=== PATIENT | female | born 1970 | race Hispanic/Latino ===

== ENCOUNTER 2020-04-25 09:10 | Emergency (ER) | payer SELFPAY ==
[2020-04-25] MEDS ORDERED: SODIUM CHLORIDE 0.9% 1000ML 2,000 ML IV ONE (09:46)
[2020-04-25] MEDS ORDERED: KETOROLAC TROMETHAMINE 30MG/ML ONE (09:47)
[2020-04-25] MEDS ORDERED: CEFTRIAXONE SODIUM 2 GM VIAL ONE (09:47)
[2020-04-25 09:59] LABS: BASOPHILS % (AUTO) 0.3 % (0.0-5.0); EOSINOPHILS % (AUTO) 0.1 % (0.0-8.0); LYMPHOCYTES % (AUTO) 8.6 % (21.0-51.0); MEAN CORPUSCULAR HEMOGLOBIN 28.7 pg (27.0-33.0); MEAN CORPUSCULAR HGB CONC 33.7 g/dL (32.0-36.0); MEAN CORPUSCULAR VOLUME 85.2 fL (79-99); MONOCYTES % (AUTO) 9.1 % (3.0-13.0); NEUTROPHILS % (AUTO) 81.3 % (40.0-77.0); PLATELET COUNT (AUTO) 103 K/uL (130-400); RED BLOOD CELL COUNT(AUTO) 5.75 MIL/uL (4.00-5.50); RED CELL DISTRIBUTION WIDTH 13.3 % (11.0-15.5); WHITE BLOOD COUNT (AUTO) 10.9 K/uL (4.8-10.8)
[2020-04-25 10:08] LABS: INR 0.98 (0.85-1.15); PARTIAL THROMBOPLASTIN TIME 25.7 SEC (26.3-35.5); PROTHROMBIN TIME 10.6 SEC (9.6-11.6)
[2020-04-25 10:23] LABS: CHLORIDE 101 mmol/L (101-111); POTASSIUM 4.2 mmol/L (3.5-5.1); SODIUM SERUM 135 mmol/L (136-145)
[2020-04-25 10:43] LABS: ALANINE AMINOTRANSFERASE 42 U/L (12-78); ALBUMIN 3.8 g/dL (3.5-5.0); ASPARTATE AMINOTRANSFERASE 39 U/L (10-37); BILIRUBIN,TOTAL 1.5 mg/dL (0.2-1.0); CARBON DIOXIDE 24 mmol/L (21-32); CREATINE KINASE, TOTAL 87 U/L (21-232); GLUCOSE,RANDOM 105 mg/dL (70-105); MYOGLOBIN 32 ng/mL (10-92); TROPONIN I < 0.04 ng/mL (0.00-0.06); UREA NITROGEN, BLOOD 9 mg/dL (7-18)
[2020-04-25 10:55] LABS: CREATININE 0.8 mg/dL (0.5-1.5); GLOMERULAR FILTR. RATE CALC 80 mL/min (>60)
[2020-04-25] MEDS ORDERED: SODIUM CHLORIDE 0.9% 1000ML 1,000 ML IV ONE (11:11)
[2020-04-25 11:18] LABS: APPEARANCE,URINE Clear (CLEAR); BILIRUBIN,URINE Negative (NEGATIVE); COLOR,URINE Yellow (YELLOW); GLUCOSE, URINE (UA) Negative (NEGATIVE); KETONES,URINE 15 mg/dL (NEGATIVE); LEUKOCYTE ESTERASE ,URINE Small (NEGATIVE); NITRATE,URINE Negative (NEGATIVE); OCCULT BLOOD,URINE Trace (NEGATIVE); PROTEIN,URINE Trace mg/dL (NEGATIVE)
[2020-04-25 11:54] LABS: BACTERIA,URINE Few /HPF (None Seen); RBC,URINE 0-1 /HPF (0-1)
== END 2020-04-25 13:45 | disposition home or self-care (01) ==
LOC: EDH 09:10
DX: N12 Tubulo-interstitial nephritis, not specified as acute or chronic (principal); Z98.890 Other specified postprocedural states
CPT/HCPCS: 36415; 71045; 74176; 80053; 81001; 82550; 83605; 83874; 84145; 84484; 85025; 85610; 85730; 86900; 86901; 87040 ×2; 87077 ×2; 87088; 87186 ×2; 93005; 96361; 96374; 96375; 99285; J0696; J1885; J7030 ×2

== ENCOUNTER 2020-08-24 20:20 | Inpatient (IN) | payer SELFPAY ==
[~2020-08-24] VITALS: Ht 175.3 cm; Wt 103.4 kg
[2020-08-24] MEDS ORDERED: CLINDAMYCIN 900 MG/D5% WATER 50 ML IV ONE (21:03)
[2020-08-24] MEDS ORDERED: KETOROLAC TROMETHAMINE 30MG/ML ONE (21:04)
[2020-08-24 21:40] LABS: BASOPHILS % (AUTO) 0.3 % (0.0-5.0); EOSINOPHILS % (AUTO) 0.1 % (0.0-8.0); HEMATOCRIT 46.8 % (36-48); LYMPHOCYTES % (AUTO) 14.9 % (21.0-51.0); MEAN CORPUSCULAR HEMOGLOBIN 28.4 pg (27.0-33.0); MEAN CORPUSCULAR HGB CONC 32.9 g/dL (32.0-36.0); MEAN CORPUSCULAR VOLUME 86.3 fL (79-99); MONOCYTES % (AUTO) 8.8 % (3.0-13.0); NEUTROPHILS % (AUTO) 75.2 % (40.0-77.0); PLATELET COUNT (AUTO) 130 K/uL (130-400); RED BLOOD CELL COUNT(AUTO) 5.42 MIL/uL (4.00-5.50); RED CELL DISTRIBUTION WIDTH 12.9 % (11.0-15.5); WHITE BLOOD COUNT (AUTO) 18.3 K/uL (4.8-10.8)
[2020-08-24 21:43] LABS: APPEARANCE,URINE Clear (CLEAR); BILIRUBIN,URINE Negative (NEGATIVE); COLOR,URINE Yellow (YELLOW); GLUCOSE, URINE (UA) Negative (NEGATIVE); KETONES,URINE 15 mg/dL (NEGATIVE); LEUKOCYTE ESTERASE ,URINE Trace (NEGATIVE); NITRATE,URINE Negative (NEGATIVE); OCCULT BLOOD,URINE Trace (NEGATIVE); PROTEIN,URINE Trace mg/dL (NEGATIVE)
[2020-08-24 21:51] LABS: CREATININE 0.7 mg/dL (0.5-1.5); POTASSIUM 3.5 mmol/L (3.5-5.1)
[2020-08-24 21:55] LABS: ALBUMIN 3.6 g/dL (3.5-5.0); BILIRUBIN,TOTAL 1.2 mg/dL (0.2-1.0); TOTAL PROTEIN, SERUM 7.9 g/dL (6.0-8.3)
[2020-08-24 22:06] LABS: RBC,URINE None Seen /HPF (0-1)
[2020-08-24 22:07] LABS: BACTERIA,URINE None Seen /HPF (None Seen); SQUAMOUS EPITHELIAL CELL,UR Moderate /HPF (0-2)
[2020-08-24] MEDS ORDERED: LACTULOSE 20 GM/30 ML UDCUP PO PRN (23:30)
[2020-08-24] MEDS ORDERED: ONDANSETRON HCL 4 MG/2 ML VIAL IV PRN (23:30)
[2020-08-24] MEDS ORDERED: ACETAMINOPHEN 325 MG TAB PO PRN ×2 (23:30)
[2020-08-25 01:52] LABS: HEMOGLOBIN A1C 5.5 % (4.0-6.0)
[2020-08-25 03:00] VITALS: BP 131/85
[2020-08-25] MEDS ORDERED: CLINDAMYCIN 600 MG/D5% WATER 50 ML IV ONE (03:12)
[2020-08-25] MEDS: CLINDAMYCIN 600 MG/D5% WATER 50 ML IV SCH ×3 (05:12→21:54)
[2020-08-25 07:26] VITALS: BP 144/84
[2020-08-25] MEDS ORDERED: FAMOTIDINE 20MG TAB 20 MG TAB PO SCH (09:00)
[2020-08-25] MEDS: FAMOTIDINE 20MG TAB 20 MG TAB PO SCH ×2 (09:31→20:16)
[2020-08-25] MEDS: ENOXAPARIN SODIUM 40 MG/0.4 ML SYRINGE SQ SCH (09:32)
[2020-08-25] MEDS: ACETAMINOPHEN-CODEINE 300/30MG TAB PO PRN ×2 (10:37→20:17)
[2020-08-25 11:06] VITALS: BP 134/76
[2020-08-25 16:59] VITALS: BP 136/87
[2020-08-25 20:00] VITALS: BP 140/83
[2020-08-25 23:03] VITALS: BP 132/76
[2020-08-26] VITALS (7 sets, daily range): BP systolic 115–154; BP diastolic 69–88
[2020-08-26] MEDS: CLINDAMYCIN 600 MG/D5% WATER 50 ML IV SCH ×3 (06:01→21:26)
[2020-08-26] MEDS: FAMOTIDINE 20MG TAB 20 MG TAB PO SCH ×2 (08:27→20:53)
[2020-08-26] MEDS: ENOXAPARIN SODIUM 40 MG/0.4 ML SYRINGE SQ SCH (08:29)
[2020-08-26] MEDS: ACETAMINOPHEN-CODEINE 300/30MG TAB PO PRN ×2 (08:31→18:42)
[2020-08-26] MEDS: SODIUM CHLORIDE 0.9% 1000ML 1,000 ML IV SCH ×2 (11:06→21:27)
[2020-08-26 11:11] LABS: BASOPHILS % (AUTO) 0.3 % (0.0-5.0); EOSINOPHILS % (AUTO) 0.7 % (0.0-8.0); HEMATOCRIT 44.8 % (36-48); LYMPHOCYTES % (AUTO) 14.4 % (21.0-51.0); MEAN CORPUSCULAR HEMOGLOBIN 28.3 pg (27.0-33.0); MEAN CORPUSCULAR HGB CONC 32.6 g/dL (32.0-36.0); MONOCYTES % (AUTO) 10.5 % (3.0-13.0); NEUTROPHILS % (AUTO) 73.7 % (40.0-77.0); PLATELET COUNT (AUTO) 143 K/uL (130-400); RED BLOOD CELL COUNT(AUTO) 5.15 MIL/uL (4.00-5.50); RED CELL DISTRIBUTION WIDTH 12.8 % (11.0-15.5); WHITE BLOOD COUNT (AUTO) 9.7 K/uL (4.8-10.8)
[2020-08-26 11:17] LABS: BILIRUBIN,TOTAL 0.5 mg/dL (0.2-1.0); CREATININE 0.7 mg/dL (0.5-1.5); POTASSIUM 3.7 mmol/L (3.5-5.1); TOTAL PROTEIN, SERUM 7.6 g/dL (6.0-8.3)
[2020-08-27 03:25] VITALS: BP 155/91
[2020-08-27] MEDS: CLINDAMYCIN 600 MG/D5% WATER 50 ML IV SCH ×3 (05:57→22:13)
[2020-08-27 07:35] VITALS: BP 160/84
[2020-08-27 08:27] LABS: BASOPHILS % (AUTO) 0.4 % (0.0-5.0); EOSINOPHILS % (AUTO) 1.2 % (0.0-8.0); HEMATOCRIT 42.8 % (36-48); LYMPHOCYTES % (AUTO) 19.3 % (21.0-51.0); MEAN CORPUSCULAR HEMOGLOBIN 28.5 pg (27.0-33.0); MEAN CORPUSCULAR HGB CONC 32.9 g/dL (32.0-36.0); MEAN CORPUSCULAR VOLUME 86.6 fL (79-99); MONOCYTES % (AUTO) 9.6 % (3.0-13.0); NEUTROPHILS % (AUTO) 69.2 % (40.0-77.0); PLATELET COUNT (AUTO) 154 K/uL (130-400); RED BLOOD CELL COUNT(AUTO) 4.94 MIL/uL (4.00-5.50); RED CELL DISTRIBUTION WIDTH 12.9 % (11.0-15.5); WHITE BLOOD COUNT (AUTO) 7.8 K/uL (4.8-10.8)
[2020-08-27 08:52] LABS: ALBUMIN 2.9 g/dL (3.5-5.0); BILIRUBIN,TOTAL 0.4 mg/dL (0.2-1.0); CREATININE 0.7 mg/dL (0.5-1.5); POTASSIUM 3.9 mmol/L (3.5-5.1); TOTAL PROTEIN, SERUM 7.3 g/dL (6.0-8.3)
[2020-08-27] MEDS: SODIUM CHLORIDE 0.9% 1000ML 1,000 ML IV SCH ×2 (08:54→19:13)
[2020-08-27] MEDS: FAMOTIDINE 20MG TAB 20 MG TAB PO SCH ×2 (08:55→20:23)
[2020-08-27] MEDS: ENOXAPARIN SODIUM 40 MG/0.4 ML SYRINGE SQ SCH (08:55)
[2020-08-27] MEDS: ACETAMINOPHEN-CODEINE 300/30MG TAB PO PRN ×3 (08:56→20:25)
[2020-08-27 11:59] VITALS: BP 154/81
[2020-08-27 15:06] VITALS: BP 152/82
[2020-08-27 20:27] VITALS: BP 147/79
[2020-08-27 23:50] VITALS: BP 141/83
[2020-08-28] VITALS (7 sets, daily range): BP systolic 124–161; BP diastolic 72–92
[2020-08-28] MEDS: ACETAMINOPHEN-CODEINE 300/30MG TAB PO PRN ×3 (04:09→18:11)
[2020-08-28] MEDS: SODIUM CHLORIDE 0.9% 1000ML 1,000 ML IV SCH ×3 (05:00→22:05)
[2020-08-28] MEDS: CLINDAMYCIN 600 MG/D5% WATER 50 ML IV SCH ×3 (06:06→21:56)
[2020-08-28] MEDS: FAMOTIDINE 20MG TAB 20 MG TAB PO SCH ×2 (09:15→20:42)
[2020-08-28] MEDS: ENOXAPARIN SODIUM 40 MG/0.4 ML SYRINGE SQ SCH (09:16)
[2020-08-29 03:09] VITALS: BP 132/68
[2020-08-29] MEDS: SODIUM CHLORIDE 0.9% 1000ML 1,000 ML IV SCH ×2 (04:09→14:04)
[2020-08-29] MEDS: ACETAMINOPHEN-CODEINE 300/30MG TAB PO PRN ×3 (04:14→20:25)
[2020-08-29] MEDS: CLINDAMYCIN 600 MG/D5% WATER 50 ML IV SCH ×3 (06:19→22:15)
[2020-08-29 07:36] VITALS: BP 138/81
[2020-08-29] MEDS: FAMOTIDINE 20MG TAB 20 MG TAB PO SCH ×2 (09:38→20:24)
[2020-08-29] MEDS: ENOXAPARIN SODIUM 40 MG/0.4 ML SYRINGE SQ SCH (09:39)
[2020-08-29 12:10] VITALS: BP 147/92
[2020-08-29 12:23] LABS: HEMATOCRIT 45.1 % (36-48); MEAN CORPUSCULAR HEMOGLOBIN 28.2 pg (27.0-33.0); MEAN CORPUSCULAR HGB CONC 32.6 g/dL (32.0-36.0); MEAN CORPUSCULAR VOLUME 86.4 fL (79-99); RED BLOOD CELL COUNT(AUTO) 5.22 MIL/uL (4.00-5.50); RED CELL DISTRIBUTION WIDTH 12.7 % (11.0-15.5); WHITE BLOOD COUNT (AUTO) 7.4 K/uL (4.8-10.8)
[2020-08-29 12:32] LABS: CREATININE 0.7 mg/dL (0.5-1.5); POTASSIUM 3.8 mmol/L (3.5-5.1)
[2020-08-29 16:38] VITALS: BP 136/80
[2020-08-29 19:21] VITALS: BP 160/91
[2020-08-29 23:40] VITALS: BP 142/79
[2020-08-30] VITALS (8 sets, daily range): BP systolic 134–166; BP diastolic 73–93
[2020-08-30] MEDS: SODIUM CHLORIDE 0.9% 1000ML 1,000 ML IV SCH (00:55)
[2020-08-30 05:22] LABS: MEAN CORPUSCULAR HEMOGLOBIN 28.8 pg (27.0-33.0); MEAN CORPUSCULAR HGB CONC 33.3 g/dL (32.0-36.0); MEAN CORPUSCULAR VOLUME 86.4 fL (79-99); RED BLOOD CELL COUNT(AUTO) 5.21 MIL/uL (4.00-5.50); RED CELL DISTRIBUTION WIDTH 12.7 % (11.0-15.5); WHITE BLOOD COUNT (AUTO) 6.5 K/uL (4.8-10.8)
[2020-08-30 05:29] LABS: CREATININE 0.7 mg/dL (0.5-1.5); POTASSIUM 3.7 mmol/L (3.5-5.1)
[2020-08-30] MEDS: CLINDAMYCIN 600 MG/D5% WATER 50 ML IV SCH ×3 (05:57→22:22)
[2020-08-30] MEDS: FAMOTIDINE 20MG TAB 20 MG TAB PO SCH ×2 (08:37→22:22)
[2020-08-30] MEDS: ACETAMINOPHEN-CODEINE 300/30MG TAB PO PRN (08:38)
[2020-08-30] MEDS: ENOXAPARIN SODIUM 40 MG/0.4 ML SYRINGE SQ SCH (08:39)
[2020-08-31 02:53] VITALS: BP 131/75
[2020-08-31 06:16] LABS: BASOPHILS % (AUTO) 0.5 % (0.0-5.0); EOSINOPHILS % (AUTO) 2.2 % (0.0-8.0); HEMATOCRIT 43.7 % (36-48); LYMPHOCYTES % (AUTO) 29.9 % (21.0-51.0); MEAN CORPUSCULAR HEMOGLOBIN 28.2 pg (27.0-33.0); MEAN CORPUSCULAR HGB CONC 32.7 g/dL (32.0-36.0); MEAN CORPUSCULAR VOLUME 86.2 fL (79-99); MONOCYTES % (AUTO) 10.1 % (3.0-13.0); NEUTROPHILS % (AUTO) 56.7 % (40.0-77.0); PLATELET COUNT (AUTO) 211 K/uL (130-400); RED BLOOD CELL COUNT(AUTO) 5.07 MIL/uL (4.00-5.50); RED CELL DISTRIBUTION WIDTH 12.6 % (11.0-15.5); WHITE BLOOD COUNT (AUTO) 7.8 K/uL (4.8-10.8)
[2020-08-31] MEDS: CLINDAMYCIN 600 MG/D5% WATER 50 ML IV SCH (06:17)
[2020-08-31 06:36] LABS: ALBUMIN 3.1 g/dL (3.5-5.0); BILIRUBIN,TOTAL 0.3 mg/dL (0.2-1.0); CREATININE 0.8 mg/dL (0.5-1.5); POTASSIUM 4.3 mmol/L (3.5-5.1); TOTAL PROTEIN, SERUM 7.5 g/dL (6.0-8.3)
[2020-08-31 07:28] VITALS: BP 157/86
[2020-08-31] MEDS: FAMOTIDINE 20MG TAB 20 MG TAB PO SCH ×2 (08:46→21:00)
[2020-08-31] MEDS: ENOXAPARIN SODIUM 40 MG/0.4 ML SYRINGE SQ SCH (08:47)
[2020-08-31] MEDS ORDERED: LISINOPRIL 5 MG TABLET PO SCH (10:45)
[2020-08-31 11:29] VITALS: BP 135/66
[2020-08-31] MEDS: AMOXICILLIN/POTASSIUM CLAV 500-125 TABLET PO SCH ×2 (12:13→21:00)
[2020-08-31 16:26] VITALS: BP 121/78
[2020-08-31 19:40] VITALS: BP 149/80
[2020-08-31 23:22] VITALS: BP 141/76
[2020-09-01] VITALS (18 sets, daily range): BP systolic 116–151; BP diastolic 62–89
[2020-09-01 06:40] LABS: BASOPHILS % (AUTO) 0.4 % (0.0-5.0); EOSINOPHILS % (AUTO) 2.2 % (0.0-8.0); HEMATOCRIT 46.8 % (36-48); LYMPHOCYTES % (AUTO) 36.4 % (21.0-51.0); MEAN CORPUSCULAR HEMOGLOBIN 27.8 pg (27.0-33.0); MEAN CORPUSCULAR HGB CONC 32.5 g/dL (32.0-36.0); MEAN CORPUSCULAR VOLUME 85.6 fL (79-99); MONOCYTES % (AUTO) 8.3 % (3.0-13.0); PLATELET COUNT (AUTO) 225 K/uL (130-400); RED BLOOD CELL COUNT(AUTO) 5.47 MIL/uL (4.00-5.50); RED CELL DISTRIBUTION WIDTH 12.8 % (11.0-15.5)
[2020-09-01 06:55] LABS: ALBUMIN 3.2 g/dL (3.5-5.0); BILIRUBIN,TOTAL 0.3 mg/dL (0.2-1.0); CREATININE 0.8 mg/dL (0.5-1.5); POTASSIUM 4.3 mmol/L (3.5-5.1); TOTAL PROTEIN, SERUM 7.8 g/dL (6.0-8.3)
[2020-09-01] MEDS: FAMOTIDINE 20MG TAB 20 MG TAB PO SCH ×2 (08:28→21:20)
[2020-09-01] MEDS: LISINOPRIL 5 MG TABLET PO SCH (08:28)
[2020-09-01] MEDS: ENOXAPARIN SODIUM 40 MG/0.4 ML SYRINGE SQ SCH (08:30)
[2020-09-01] MEDS: AMOXICILLIN/POTASSIUM CLAV 500-125 TABLET PO SCH ×2 (09:41→21:20)
[2020-09-01] MEDS ORDERED: LACTATED RINGERS 1000ML 1,000 ML IV ONE (10:01)
[2020-09-01] MEDS ORDERED: LIDOCAINE PF 2% 5ML ABBOJECT ONE (10:21)
[2020-09-01] MEDS ORDERED: FENTANYL CITRATE PF 50 MCG/1 ML 2ML VIAL ONE (10:21)
[2020-09-01] MEDS ORDERED: DEXAMETHASONE SOD PHOSPHATE 10MG/ML 1ML VIAL ONE (10:21)
[2020-09-01] MEDS ORDERED: ONDANSETRON HCL 4 MG/2 ML VIAL ONE (10:21)
[2020-09-01] MEDS ORDERED: SUCCINYLCHOLINE 200MG/10ML SYR ONE (10:21)
[2020-09-01] MEDS ORDERED: PROPOFOL 10 MG/ML 20ML VIAL IV ONE (10:21)
[2020-09-01] MEDS ORDERED: MIDAZOLAM HCL 1 MG/ML 2ML VIAL ONE ×2 (10:21→10:55)
[2020-09-01] MEDS ORDERED: MEPERIDINE-PF 25 MG/ML SYG ONE ×2 (10:23→10:56)
[2020-09-01] MEDS ORDERED: BUPIVACAINE/PF 0.5% 30ML VIAL ONE (11:06)
[2020-09-01] MEDS: ACETAMINOPHEN-CODEINE 300/30MG TAB PO PRN ×2 (13:32→19:08)
[2020-09-02 03:45] VITALS: BP 139/82
[2020-09-02] MEDS: ACETAMINOPHEN-CODEINE 300/30MG TAB PO PRN (03:49)
[2020-09-02] MEDS ORDERED: AMOX-426 PO (05:59)
[2020-09-02 06:19] LABS: BASOPHILS % (AUTO) 0.2 % (0.0-5.0); EOSINOPHILS % (AUTO) 0.2 % (0.0-8.0); HEMATOCRIT 44.3 % (36-48); LYMPHOCYTES % (AUTO) 21.4 % (21.0-51.0); MEAN CORPUSCULAR HEMOGLOBIN 28.1 pg (27.0-33.0); MEAN CORPUSCULAR HGB CONC 33.2 g/dL (32.0-36.0); MEAN CORPUSCULAR VOLUME 84.7 fL (79-99); NEUTROPHILS % (AUTO) 70.8 % (40.0-77.0); PLATELET COUNT (AUTO) 230 K/uL (130-400); RED BLOOD CELL COUNT(AUTO) 5.23 MIL/uL (4.00-5.50); RED CELL DISTRIBUTION WIDTH 12.6 % (11.0-15.5); WHITE BLOOD COUNT (AUTO) 13.2 K/uL (4.8-10.8)
[2020-09-02 06:34] LABS: ALBUMIN 3.2 g/dL (3.5-5.0); BILIRUBIN,TOTAL 0.3 mg/dL (0.2-1.0); CREATININE 0.7 mg/dL (0.5-1.5); POTASSIUM 4.1 mmol/L (3.5-5.1); TOTAL PROTEIN, SERUM 7.6 g/dL (6.0-8.3)
[2020-09-02 07:23] VITALS: BP 136/80
[2020-09-02] MEDS: AMOXICILLIN/POTASSIUM CLAV 500-125 TABLET PO SCH (09:58)
[2020-09-02] MEDS: LISINOPRIL 5 MG TABLET PO SCH (10:00)
[2020-09-02] MEDS: FAMOTIDINE 20MG TAB 20 MG TAB PO SCH (10:00)
[2020-09-02] MEDS: ENOXAPARIN SODIUM 40 MG/0.4 ML SYRINGE SQ SCH (10:01)
[2020-09-02 11:24] VITALS: BP 133/94
== END 2020-09-02 12:00 | disposition home or self-care (01) | DRG 580 ==
LOC: EDH 20:20 → EDHIP 20:21 → WSH 08-25 02:45 → UNDODISIN 08-26 14:10
PROVIDERS: ADMIT Internal Medicine; ATTEND Internal Medicine
PROC: 0J980ZZ Drainage of Abdomen Subcutaneous Tissue and Fascia, Open Approach (ICD-10-PCS; principal; 2020-09-01 11:07)
DX: L03.311 Cellulitis of abdominal wall (principal); E87.1 Hypo-osmolality and hyponatremia; M79.3 Panniculitis, unspecified; E66.9 Obesity, unspecified; D72.829 Elevated white blood cell count, unspecified; Z68.33 Body mass index [BMI] 33.0-33.9, adult; I10 Essential (primary) hypertension; Z79.899 Other long term (current) drug therapy; L02.211 Cutaneous abscess of abdominal wall; Z20.822 Contact with and (suspected) exposure to COVID-19
CPT/HCPCS: 36415; 76705; 80048; 80053; 81001; 83036; 84145; 85025; 85027; 87040; 87070; 87076; 87077; 87186; 87426; A6266; G0378; J0330; J1100; J1650; J1885; J2001; J2175; J2250; J2405; J2704; J3010; J3490; J7030; J7120